=== PATIENT | female | born 1945 | race Caucasian/White ===

== ENCOUNTER 2017-06-21 08:24 | Day surgery (SDC) | payer MEDICARE, OTHER ==
[~2017-06-21] VITALS: Ht 165.1 cm; Wt 69.4 kg
[~2017-06-21 08:24] MED LIST: ASPIR 8181 MG PO; CALCIUM CIT-VI1 EACH PO; CITALOPRAM HBR40 MG PO; LEVOTHYROXINE100 MCG PO; LEVOTHYROXINE75 MCG PO; OXYBUTYNIN CHLOR5 MG PO; WELLBUTRIN SR100 MG PO
== END 2017-06-21 11:30 | disposition home or self-care (01) ==
LOC: OPS 08:24 → DS 08:24 → OPS 09:45 → DS 09:45 → OPS 11:30
PROC: 08RK3JZ Replacement of Left Lens with Synthetic Substitute, Percutaneous Approach (ICD-10-PCS; principal; 2017-06-21)
DX: H25.12 Age-related nuclear cataract, left eye (principal); F32.9 Major depressive disorder, single episode, unspecified; E07.9 Disorder of thyroid, unspecified; Z98.890 Other specified postprocedural states; Z79.899 Other long term (current) drug therapy
CPT/HCPCS: 00140; J2250

== ENCOUNTER 2020-10-01 11:42 | Day surgery (SDC) | payer MEDICARE, OTHER ==
[~2020-10-01] VITALS: Ht 165.1 cm; Wt 65.9 kg
[~2020-10-01 11:42] MED LIST changes: +ATIVAN0.5 MG PO; +BIOTIN5000 MCG PO; +FOSAMAX70 MG PO; +IBUPROFEN600 MG PO; +MAPAP325 MG PO; +ONE DAILY COMP1 EACH PO; +OXYCODON-ACETA1 EAC2 PO; +VITAMIN D32000 UNI1 PO
--- NOTE | 2020-10-01 14:01 | NUR ---
10/01/20 1401 Jillian Mirza 1355 PATIENT ARRIVES TO PACU SLEEPING, AWAKENS WITH VERBAL STIMULI, DENIES PAIN AND NAUSEA. BACK TO SLEEP WHEN NOT STIMULATED. RESP EVEN AND UNLABORED, ROOM AIR SATS >94%.
--- NOTE | 2020-10-02 11:23 | PATH ---
[facility] [address] [place], [place] [address] Signed SPECIMEN(S): A DUODENAL BIOPSY SPECIMEN(S): B ANTRUM/PYLORUS SPECIMEN(S): C LOWER ESOPHAGUS SPECIMEN(S): D UPPER ESOPHAGUS SPECIMEN SOURCE: A. DUODENAL BIOPSY B. ANTRUM/PYLORUS C. LOWER ESOPHAGUS D. UPPER ESOPHAGUS CLINICAL HISTORY: Dysphagia, follow-up colonoscopy. Dx: Antral gastritis. MICROSCOPIC DESCRIPTION: Histologic sections of all submitted blocks are examined by light microscopy. These findings, together with the gross examination, support the pathologic diagnosis. FINAL PATHOLOGIC DIAGNOSIS: A. Duodenum, biopsy: - Duodenal mucosa with no histopathologic abnormality. - Negative for increased epithelial lymphocytes. - Negative for dysplasia or malignancy. B. Stomach, antrum/pylorus, biopsy: - Antral/oxyntic mucosa with chronic, inactive gastritis. - Negative for Helicobacter organisms on HE stain. - Negative for dysplasia or malignancy. C. Esophagus, lower, biopsy: - Squamous mucosa with no histopathologic abnormality. - Negative for intestinal metaplasia, dysplasia, or malignancy. D. Esophagus, upper, biopsy: - Squamous mucosa with minimal chronic inflammation and reactive epithelial changes. - Negative for increased intraepithelial eosinophils. - Negative for intestinal metaplasia, dysplasia or malignancy. COMMENT: Regarding specimen B: An H. pylori immunohistochemical stain is pending and will be reported in an addendum. NAL:cml:[id number] PATIENT NAME: CRISTIANO SOOD PATHOLOGY DATE OF : 41 REPORT #: [id number] PHYSICIAN: JUAN JOSÉ ARAGON PCP: CHACHO ALVAREZ REPORT IS CONFIDENTIAL AND NOT TO BE RELEASED WITHOUT AUTHORIZATION [facility] [address] [place], [place] [address] Signed GROSS DESCRIPTION: Four specimens are received in four containers labeled with "SN". A. The specimen, labeled "SN," and designated on the requisition "duodenum biopsy," is received in formalin and consists of one fragment red-brown tissue (0.4 x 0.3 x 0.2 cm). The specimen is submitted entirely in cassette (A1). B. The specimen, labeled "SN," and designated on the requisition "antrum/pylorus biopsy," is received in formalin and consists of three fragments of pink-camacho tissue (0.6 x 0.3 x 0.2 cm in aggregate). The specimen is submitted entirely in cassette (B1). C. The specimen, labeled "SN," and designated on the requisition "lower esophagus biopsy," is received in formalin and consists of multiple fragments of pink-camacho tissue (0.4 x 0.3 x 0.1 cm in aggregate). The specimen is submitted entirely in cassette (C1). D. The specimen, labeled "SN," and designated on the requisition "upper esophagus biopsy," is received in formalin and consists of two fragments of white-camacho tissue (0.5 x 0.4 x 0.1 cm in aggregate). The specimen is submitted entirely in cassette (D1). AC (under the direct supervision of a pathologist) The Gross Description was prepared using a voice recognition system. The report was reviewed for accuracy; however, sound-alike word errors, addition and/or deletions may occur. If there is any question about this report, please contact Client Services. PERFORMING LABORATORY: The technical component was performed by [facility], [address] [place] [id number] (Pay Clerk: Gill Knox MD; CLIA# [id number]). Professional interpretation was performed by [facility], [facility], [address] [place] [address] (CLIA# [id number]). Diagnostician: Mariama Lamb MD Pathologist Electronically Signed 10/02/2020 Copies: ~ PATIENT NAME: CRISTIANO SOOD PATHOLOGY DATE OF : 41 REPORT #: [id number] PHYSICIAN: JUAN JOSÉ PATHOLOGY PCP: CHACHO ALVAREZ REPORT IS CONFIDENTIAL AND NOT TO BE RELEASED WITHOUT AUTHORIZATION
--- NOTE | 2020-10-02 18:53 | OR ---
[facility] [address] [place], [place] [address] Signed DATE OF OPERATION: 10/01/2020 SURGEON: Mariola Smith MD PREOPERATIVE DIAGNOSES: 1. Dysphagia and clinical gastroesophageal reflux syndrome. 2. Alendronate use. 3. Family history of colon cancer (father). POSTOPERATIVE DIAGNOSES: 1. Hiatal hernia with mild distal esophagitis. 2. Antral gastritis. 3. Sigmoid and left-sided diverticulosis with internal hemorrhoids. PROCEDURE: 1. Esophagogastroduodenoscopy with biopsy. 2. Total colonoscopy of the cecum. ANESTHESIA: Intravenous sedation fentanyl 150 mcg and Versed 3.5 mg (total). INDICATION: This 75-year-old white woman is clinically far younger than her stated age. She has family history of colon cancer in her father in the past. She last underwent colonoscopy in 2002. She has no symptoms of bleeding, diarrhea, or constipation and on that basis surveillance colonoscopy is recommended. Additionally, she does have clinical reflux symptoms from time to time, some daily dysphagia. She is taking alendronate for bone health. She has had no hemoptysis. She is admitted to undergo concurrent upper endoscopy on the basis of those symptoms. She understands risks of bleeding, infection, and perforation related to upper endoscopy and colonoscopy and wished to proceed. FINDINGS: Upper endoscopy showed no sign of stricture, but did show mild distal esophagitis. There was a poor flap valve consistent with hiatal hernia. She clearly had antral gastritis. CLOtest was negative. No evidence of Helicobacter pylori. Duodenum was mildly inflamed. On colonoscopy, the prep was good. Complete colonoscopy was undertaken of the cecum. Electronically Signed By: MARIOLA SMITH MD 10/02/20 185 PATIENT NAME: CRISTIANO SOOD OPERATIVE REPORT DATE OF : 41 REPORT #: [id number] PHYSICIAN: MARIOLA SMITH MD PCP: CHACHO HODGSON REPORT IS CONFIDENTIAL AND NOT TO BE RELEASED WITHOUT AUTHORIZATION [facility] [address] [place], [place] [address] Signed There were numerous diverticula in the sigmoid and left colon. No evidence of polyps or colitis or cancer. She also had internal hemorrhoids. DESCRIPTION OF PROCEDURE: The patient was brought to the endoscopy suite and given topical lidocaine hypopharyngeal anesthesia and placed in lateral decubitus position and given intravenous sedation to the point of slurred speech and nystagmus. A bite block was placed. The Olympus video upper endoscope was passed in the hypopharynx. The vocal cords were normal. Scope was advanced to the esophagus with no sign of stricture or neoplasm, only mild distal esophagitis. The scope was advanced to the stomach, which was insufflated with air. Rugal folds were normal. Pylorus was normal. There was antral gastritis quite clearly, but no sign of ulceration or erosion. The scope was passed through the pylorus into the duodenum, which was reasonably normal though there was mild inflammation of the bulb. Biopsies were obtained. The scope was withdrawn and biopsy was then taken of the antrum for both ISAMAR and pathologic testing. Retroflexed view was undertaken showing a somewhat patulous flap valve. Retroflexed view allowed for withdrawal of scope into the distal esophagus. Scope was straightened, withdrawn and biopsies then taken of distal esophagus. Midesophageal biopsies were additionally taken though the esophagus looked normal in that area, so as to assess for eosinophilic esophagitis. Careful withdrawal of scope showed no other abnormality. Plans were then made for colonoscopy. Additional sedation was given. Digital rectal examination was normal. An Olympus video colonoscope was passed in the rectum and manipulated throughout the colon noting numerous diverticula of the sigmoid and left colon. Scope was ultimately advanced to the cecum. The ileocecal valve and appendiceal orifice were normal. Scope was withdrawn from that point. Examination showed no sign of colitis or polyps only diverticular changes. Retroflexed view confirmed internal hemorrhoidal changes. The scope was straightened, withdrawn and removed. The patient was taken to the recovery room in good condition. CONCLUDING DIAGNOSES: 1. Small hiatal hernia and mild distal esophagitis without stricture. 2. Antral gastritis. 3. Diverticular changes colon with hemorrhoids. No evidence of polyps. PLAN: 1. Recommend repeat colonoscopy in 5 years based on family history of colon cancer in her father. 2. Prescription for Prilosec 20 mg p.o. daily. Strong consideration should be made for avoidance of alendronate considering her reflux problems and adverse interactions of Electronically Signed By: MARIOLA SMITH MD 10/02/20 1853 PATIENT NAME: CRISTIANO SOOD OPERATIVE REPORT DATE OF : 41 REPORT #: [id number] PHYSICIAN: MARIOLA SMTIH MD PCP: CHACHO HODGSON REPORT IS CONFIDENTIAL AND NOT TO BE RELEASED WITHOUT AUTHORIZATION [facility] [address] [place], [place] [address] Signed alendronate in this setting. FOLLOWUP PLAN: She is return to see JETT Feliz on an ongoing basis. She will follow up with Dr. Plasencia and Dr. Hodgson. Mariola Smith MD /VICKIEL /[id number] cc: JETT Feliz MD Copies: CHACHO HODGSON PATRICIA J MD ~ Electronically Signed By: MARIOLA SMITH MD 10/02/20 1853 PATIENT NAME: CRISTIANO SOOD OPERATIVE REPORT DATE OF : 41 REPORT #: [id number] PHYSICIAN: MARIOLA SMITH MD PCP: CHACHO HODGSON REPORT IS CONFIDENTIAL AND NOT TO BE RELEASED WITHOUT AUTHORIZATION
== END 2020-10-01 14:30 | disposition home or self-care (01) ==
LOC: OPS 11:42 → DS 11:46 → OPS 13:00
PROVIDERS: ATTEND Surgery
PROC: 0DB78ZX Excision of Stomach, Pylorus, Via Natural or Artificial Opening Endoscopic, Diagnostic (ICD-10-PCS; 2020-10-01)
PROC: 0DB18ZX Excision of Upper Esophagus, Via Natural or Artificial Opening Endoscopic, Diagnostic (ICD-10-PCS; 2020-10-01)
PROC: 0DB38ZX Excision of Lower Esophagus, Via Natural or Artificial Opening Endoscopic, Diagnostic (ICD-10-PCS; 2020-10-01)
PROC: 0DJD8ZZ Inspection of Lower Intestinal Tract, Via Natural or Artificial Opening Endoscopic (ICD-10-PCS; principal; 2020-10-01 13:00)
PROC: 0DB98ZX Excision of Duodenum, Via Natural or Artificial Opening Endoscopic, Diagnostic (ICD-10-PCS; 2020-10-01 13:00)
DX: Z12.11 Encounter for screening for malignant neoplasm of colon (principal); K44.9 Diaphragmatic hernia without obstruction or gangrene; K29.50 Unspecified chronic gastritis without bleeding; K20.90 Esophagitis, unspecified without bleeding; K57.30 Diverticulosis of large intestine without perforation or abscess without bleeding; K64.8 Other hemorrhoids; N32.81 Overactive bladder; E03.9 Hypothyroidism, unspecified; Z80.0 Family history of malignant neoplasm of digestive organs
CPT/HCPCS: 99153; G0500; J2250; J3010; J7121

== ENCOUNTER 2023-07-22 09:02 | Day surgery (SDC) | payer MEDICARE, OTHER ==
--- NOTE | 2023-07-22 09:27 | NUR ---
LE 0910: PT ARRIVES TO AMBULATORY. SHE IS PUT INTO TX ROOM FOR CYSTOSCOPY WITH BOTOX. LE 0921: UA SAMPLE IS COLLECTED AND TAKEN TO THE LAB. SHE DOESN'T WANT TO MOVE FORWARD WITH ANYTHING UNTIL THE RESULTS COME BCK.
[2023-07-22 09:28] LABS: BILIRUBIN, URINE NEGATIVE (negative); BLOOD/HGB, URINE NEGATIVE (Negative); KETONE, URINE NEGATIVE (Negative); LEUK ESTERASE, URINE NEGATIVE (negative); NITRITE, URINE NEGATIVE (negative)
[2023-07-22 09:35] LABS: BACTERIA, URINE RARE /hpf (negative); CASTS, URINE NONE SEEN \\lpf; CRYSTALS, URINE NONE SEEN (0-1+); EPITHELIAL CELLS, URINE SQUAMOUS 1+ /lpf (0-1+); RED BLOOD CELLS, URINE 0-1 /hpf (0-5)
[2023-07-22 09:36] LABS: COLLECTION TYPE, URINE CLEAN CATCH; REFLEX CULTURE, URINE No (No)
--- NOTE | 2023-07-22 09:50 | NUR ---
LE 0940: INDWELLING 16FR MARINELLI CATHETER IS PLACED USING STERILE TECHNIQUE. IMMEDIATE DARK YELLOW URINE RETURNED. MARINELLI BAG DISCONNECTED AND EMPTIED FOR APPROX 400MLS. LE 0950: 4% LIDOCAINE 100MLS IS INSTILLED IN THE BLADDER. TIMER STARTED. PT IS COMFORTABLE WITH CALL LIGHT WITHIN REACH.
--- NOTE | 2023-07-22 10:23 | NUR ---
LE 1020: PT'S BLADDER IS EMPITED OF APPROX 125MLS OF PALE YELLOW URINE. MARINELLI IS REMOVED.
--- NOTE | 2023-07-22 14:36 | OR ---
[facility] [address] [place], [place] [address] Signed DATE OF OPERATION: 07/22/2023 SURGEON: Joan Alvarez MD PREOPERATIVE DIAGNOSIS: Overactive bladder. POSTOPERATIVE DIAGNOSIS: Overactive bladder. NAME OF PROCEDURE: Diagnostic cystoscopy with Botox bladder injection of 100 units. ANESTHESIA: 100 mL of 4% liquid lidocaine. SPECIMENS: None. DRAINS: None. INDICATIONS FOR PROCEDURE: Ms. Sood is a very pleasant 78-year-old female, who is with a history of overactive bladder, who is well-known to me. For the past couple years or so, she has been undergoing routine Botox bladder injections of 100 units for management of her moderate overactive bladder symptoms. For the past couple of years, she has responded quite nicely to the injections. She does, however, report today that her most recent Botox bladder injection which took place in April 2003 was not quite as effective as it has in the past. She does report, however, that she has increased her intake of grapefruit and is now eating at least three grapefruits a day. She otherwise has no complaints today and presents to undergo another routine injection of 100 units. OPERATIVE FINDINGS: 1. On cystoscopy, there was no evidence of any suspicious masses, lesions, or stones. Bilateral ureteral orifices are in their normal anatomic location. She does appear to have a good deal of diffuse bladder wall irritation in the form of hypervascularity along with the presence of diffuse cystitis cystica. In general, her bladder appears more irritated than it has in the past. She was notified of this today. 2. A total of 100 units of botulinum toxin was injected into the patient's bladder via Electronically Signed By: JOAN ALVAREZ MD 07/22/23 1436 PATIENT NAME: BLANCA SOOD OPERATIVE REPORT DATE OF : 41 REPORT #: [id number] PHYSICIAN: JOAN ALVAREZ MD PCP: CHACHO ALVAREZ REPORT IS CONFIDENTIAL AND NOT TO BE RELEASED WITHOUT AUTHORIZATION [facility] [address] [place], [place] [address] Signed 0.5 mL aliquots for a total of 11 mL of solution injected today without difficulty. DESCRIPTION OF PROCEDURE: After informed consent was obtained, the patient was taken back to the operating room. A 16-Wolof Mckay catheter was inserted into her bladder and all of the urine was drained from her bladder. Then, approximately 100 mL of 4% liquid lidocaine was instilled into her bladder for a total of 30 minutes. Her bladder was then drained and the catheter was removed. She was then placed into position and her genitalia were prepped and draped in a standard sterile fashion. I advanced a flexible cystoscope through her urethra and into her bladder and then filled her bladder to about 200 mL. I then injected the bladder as per routine in 0.5 mL aliquots, focusing mainly on the bilateral garrett of the bladder and the posterior wall and avoiding the trigone and dome areas. The injections were performed without any complication. Once the injections were complete, I removed the flexible cystoscope and then catheterized the patient with 18-Wolof catheter and drained her bladder completely. The procedure was then terminated and now she will return to day surgery in stable condition. DISPOSITION: A prescription for Cipro 500 mg p.o. b.i.d. for a total of five days was sent over to [facility] on her behalf today. I informed our feather stitcher that I would like to see Blanca back in about 3.5 months to undergo another Botox bladder injection of 100 units. She will be discharged to home later today in stable condition. If she does not respond to the next 1 to 2 Botox bladder injections, she may be considered a good candidate for sacral neuromodulation. MD BONNIE Gomez/VICKIEL /[id number] Copies: ~ Electronically Signed By: JOAN ALVAREZ MD 07/22/23 1436 PATIENT NAME: BLANCA SOOD OPERATIVE REPORT DATE OF : 41 REPORT #: [id number] PHYSICIAN: JOAN ALVAREZ MD PCP: CHACHO ALVAREZ REPORT IS CONFIDENTIAL AND NOT TO BE RELEASED WITHOUT AUTHORIZATION
== END 2023-07-22 11:00 | disposition home or self-care (01) ==
LOC: OPS 09:02 → DS 09:08 → OPS 10:00
PROVIDERS: ATTEND Urology
PROC: 3E0K8GC Introduction of Other Therapeutic Substance into Genitourinary Tract, Via Natural or Artificial Opening Endoscopic (ICD-10-PCS; principal; 2023-07-22 10:00)
DX: N32.81 Overactive bladder (principal); E78.5 Hyperlipidemia, unspecified
CPT/HCPCS: 51700; 52287; 81001; J0585

== ENCOUNTER → 2025-06-21 | Day surgery (SDC) | payer MEDICARE, OTHER ==
[~2025-06-21] MED LIST changes: +BOTULINUM TOXIN TYPE A 100 UNITS VIAL IM SCH; +LIDOCAINE 2% VISCOUS 11 ML SYR ONE; +LIDOCAINE HCL 4% 50 ML BTL TOP SCH; +MULTIVITAMIN1 EACH PO; +OMEPRAZOLE20 MG PO; +SODIUM CHLORIDE 0.9% 20 ML IV ONE; +VITAMIN B12500 MCG PO; +VITAMIN C100 MG PO; +VITAMIN D325 MC2 PO
[2025-06-21 08:10] LABS: BLOOD/HGB, URINE NEGATIVE (Negative); KETONE, URINE NEGATIVE (Negative); LEUK ESTERASE, URINE NEGATIVE (negative); NITRITE, URINE NEGATIVE (negative)
== END ==
LOC: DS 07:54
PROVIDERS: ATTEND Urology
PROC: 3E0K8GC Introduction of Other Therapeutic Substance into Genitourinary Tract, Via Natural or Artificial Opening Endoscopic (ICD-10-PCS; principal; 2025-06-21 09:30)
DX: N32.81 Overactive bladder (principal); E78.5 Hyperlipidemia, unspecified; E03.9 Hypothyroidism, unspecified
CPT/HCPCS: 52287; 81003; C1747; J0585; J3490